=== PATIENT | female | born 1975 | race Caucasian/White ===

== ENCOUNTER 2017-06-16 11:20 | Day surgery (SDC) | payer BC ==
[2017-06-13 12:33] VITALS: BMI 32.2
[~2017-06-16] VITALS: Ht 157.5 cm; Wt 78.9 kg
[2017-06-16] VITALS (7 sets, daily range): BP systolic 93–102; BP diastolic 49–67; PULSE 55–73; RESP 13–23; Ht 157.5 cm; Wt 78.9 kg
[2017-06-16] MEDS ORDERED: LIDOCAINE 2% (SDV) 5 ML INJ ONE (12:16)
[2017-06-16] MEDS ORDERED: NEOSTIGMINE 3 MG/3 ML SYRINGE ONE (12:16)
[2017-06-16] MEDS ORDERED: ROCURONIUM 50 MG INJ ONE (12:16)
[2017-06-16] MEDS ORDERED: PROPOFOL 20 ML ONE (12:16)
[2017-06-16] MEDS ORDERED: MIDAZOLAM 1 MG/ML 2 ML INJ ONE (12:16)
[2017-06-16] MEDS ORDERED: FENTAnyl 50 MCG/ML VIAL ONE (12:16)
[2017-06-16] MEDS ORDERED: GLYCOPYRROLATE 0.4 MG INJ ONE (12:16)
[2017-06-16] MEDS ORDERED: LIDOCAINE 1% (STERILE-PAK) 30 ML INJ ONE (12:26)
[2017-06-16] MEDS ORDERED: BUPIVACAINE 0.5% (SDV) 30 ML INJ ONE (12:26)
[2017-06-16] MEDS ORDERED: LABETALOL HCL 20MG INJ IV PRN (12:30)
[2017-06-16] MEDS ORDERED: ONDANSETRON 4 MG INJ IV PRN (12:30)
[2017-06-16] MEDS ORDERED: ATROPINE 1 MG/10 ML SYRINGE IV PRN (12:30)
[2017-06-16] MEDS ORDERED: HYDROmorphONE (0.2 MG/ML) 10ML SYG IV PRN ×3 (12:30)
[2017-06-16] MEDS ORDERED: hydrALAzine 20 MG INJ IV PRN (12:30)
[2017-06-16] MEDS ORDERED: morphine (1 MG/ML) 10ML SYRINGE IV PRN ×3 (12:30)
[2017-06-16] MEDS ORDERED: EPHEDrine SULFATE 50 MG/5 ML SYG IV PRN (12:30)
[2017-06-16] MEDS ORDERED: MEPERIDINE 25 MG INJ IV PRN (12:30)
[2017-06-16] MEDS ORDERED: OXYCODONE/ACETAMINOPHEN (5/325) TAB PO PRN ×2 (12:30)
[2017-06-16] MEDS ORDERED: MIDAZOLAM 1 MG/ML 2 ML INJ IV PRN (12:30)
[2017-06-16] MEDS ORDERED: FENTAnyl 50 MCG/ML VIAL IV PRN ×2 (12:30)
[2017-06-16] MEDS ORDERED: DIPHENHYDRAMINE 50 MG INJ IV PRN (12:30)
[2017-06-16] MEDS ORDERED: SPIR25TA PO (12:42)
--- NOTE | 2017-06-16 12:42 | HPN ---
Date/Time of Note Date/Time of Note DATE: 06/16/17 TIME: 12:42 Interval H&P Admission Note Pt. seen H&P reviewed: No system changes JS WEI MD Jun 16, 2017 12:42
[2017-06-16] MEDS ORDERED: SUMA100T4 PO (12:43)
[2017-06-16] MEDS ORDERED: LOSA1TAB21 PO (12:43)
--- NOTE | 2017-06-16 12:46 | SIPON ---
Date/Time of Note Date/Time of Note DATE: 06/16/17 TIME: 12:44 Operative Report Preoperative Diagnosis right long finger trigger finger Postoperative Diagnosis same Operation/Procedure Performed trigger finger release Surgeon: JS WEI MD Estimated Blood Loss: none Transfusion Required: no Grafts/Implants: none Complications: no JS WEI MD Jun 16, 2017 12:45
[2017-06-16] MEDS ORDERED: LIDOCAINE 2%/EPI 30 ML INJ ONE (12:49)
--- NOTE | 2017-06-16 19:27 | OPR ---
DATE OF OPERATION: 06/16/2017 PREOPERATIVE DIAGNOSIS: Right hand, long finger stenosing tenosynovitis trigger finger. PREOPERATIVE DIAGNOSIS: Right hand, long finger stenosing tenosynovitis trigger finger. OPERATION PERFORMED: Right hand, long finger, trigger finger release, A1 nehemiah release. SURGEON: Charlie Presley MD VENDETTE: staff. ANESTHESIA: Sedation by the anesthesiologist. Local anesthetic by the surgeon. SURGICAL PAUSE: I examined the patient in the preop holding area, temo in the surgical incision, confirmed the operative procedure plan with the patient awake, showed the drawn surgical incision to the patient, confirmed the operative procedure and plan. INFORMED CONSENT: Informed consent: At the time we scheduled the operative procedure, we talked with the patient about the risks and hazards of surgery. I mentioned an operative mortality wound infection, nerve injury, good result, , potential complications. The patient signed the note confirming that conversation. OPERATIVE PROCEDURE: The patient taken to surgery, sterile prep and draped. The pneumatic tourniquet inflated to 250 mm. A transverse 1.5 cm incision made in the palm overlying the A1 nehemiah right hand, long finger. The flexor tendon sheath was exposed. Neurovascular bundles protected. The sheath incised and split for a short distance proximally and distally taking care to protect the A2 nehemiah. The wound was closed in interrupted Vicryl rapid suture and bulky dressing applied. Dictated By: Charlie Presley MD /sylvester/joni /Document#: [id number]
== END 2017-06-16 16:10 | disposition home or self-care (01) ==
LOC: SDS 11:20
PROVIDERS: ATTEND Orthopaedic Surgery Hand Surgery
DX: M65.331 Trigger finger, right middle finger (principal); E11.9 Type 2 diabetes mellitus without complications; I10 Essential (primary) hypertension
CPT/HCPCS: 26055; J2250; J2710; J3010; Z7512; Z7610